=== PATIENT | male | born 1955 | race Two or more races ===

== ENCOUNTER → 2021-11-27 | Emergency (ER) | payer OTHER ==
[~2021-11-27] VITALS: Ht 172.7 cm; Wt 81.6 kg
[~2021-11-27] MED LIST: ADULT LOW DOSE81 M1; GLUMETZA1000 MG; LIPITOR20 MG
== END | disposition expired ==
LOC: ER 15:45
DX: T75.1XXA Unspecified effects of drowning and nonfatal submersion, initial encounter (principal); I46.9 Cardiac arrest, cause unspecified; W69.XXXA Accidental drowning and submersion while in natural water, initial encounter; Y93.11 Activity, swimming; Y92.832 Beach as the place of occurrence of the external cause; Y99.8 Other external cause status